=== PATIENT | male | born 1950 | race Caucasian/White ===

== ENCOUNTER → 2016-07-07 | Outpatient (CLI) | payer BC ==
--- NOTE | 2016-07-07 14:24 | RADRPT ---
PROCEDURE: XR Hip. CLINICAL INDICATION: PAIN TECHNIQUE: AP and frog lateral views of the left hip were performed. AP view of the pelvis COMPARISON: None. FINDINGS: There is normal mineralization and alignment. No fracture or osseous lesion is identified. There is severe narrowing of the left hip joint, with a articular surface subchondral sclerosis and osteophyt e formation. The soft tissues are unremarkable. IMPRESSION: Severe degenerative joint disease involving the left hip. No visualized fracture or dislocation.. RPTAT: DD .Boom Villegas MD, MD Date Time Electronically viewed and signed by .Boom Villegas MD, on 07/07/2016 14:23 .T/
== END | disposition home or self-care (01) ==
LOC: HKI 13:54
PROVIDERS: ATTEND Orthopaedic Surgery
DX: M16.12 Unilateral primary osteoarthritis, left hip (principal); M25.552 Pain in left hip
CPT/HCPCS: 73502; G0463